=== PATIENT | male | born 1980 | race Caucasian/White ===

== ENCOUNTER 2018-06-20 14:55 | Emergency (ER) | payer OTHER ==
[~2018-06-20] VITALS: Ht 154.9 cm; Wt 108.9 kg
--- NOTE | 2018-06-20 16:06 | RAD ---
Single view pelvis two-view right hip, two-view right femur and three-view right ankle dated 06/20/2018. No comparison available. Clinical data indication: Pain after fall today. FINDINGS: AP view pelvis shows normal bony alignment. No displaced fracture. Pelvic ring is intact. No acute osseous or articular abnormality. Mild degenerative change of the bilateral hip joint. 2 views of right hip show normal bony alignment. No displaced fracture. No acute osseous or articular abnormality. 2 views of the right femur show normal bony alignment. No displaced fracture. The femoral shaft is intact. No acute osseous or articular abnormality. Mild tricompartmental degenerative change at the knee. 3 views right ankle show normal bony alignment. No displaced fracture. No acute osseous or articular abnormality. Talar dome is intact. IMPRESSION: No acute radiographic abnormality. Degenerative changes as described. Electronically signed by: Kashif Dietrich MD (06/20/2018 4:02 PM) [facility] [place]
--- NOTE | 2018-06-20 16:18 | PHYS DOC ---
Past History Past Medical History: Other Past Surgical History: Other Alcohol Use: Rarely Drug Use: None Adult General Chief Complaint Chief Complaint: MECHANICAL FALL HPI HPI Patient is a 37-year-old male who presents with complaint of right hip, thigh and ankle pain after falling at work. Patient states that he had stepped into a hole in the floor at work and tripped and fell. Patient states that he has had a total of 2 surgeries on his right hip in the past and he is worried that he may have done something to injure the hip. He rates his pain to be a 10 out of 10. Patient states that he takes Percocet 4 times a day and states that his last dose was at 12 PM. He states that that has not helped this pain. He denies any head injury or neck pain. Patient states that he is unable to bear weight on his hip due to the level of pain. Review of Systems Review of Systems Constitutional: Denies fever or chills [] Respiratory: Denies cough or shortness of breath [] Cardiovascular: No additional information not addressed in HPI [] Musculoskeletal: Complains of right hip, thigh and ankle pain[] Integument: Denies rash or skin lesions [] Current Medications Current Medications Current Medications Medications (Trade) Dose Ordered Sig/Anjana Start Time Stop Time Status Last Admin Dose Admin Fentanyl Citrate (Fentanyl 2ml Vial) 50 mcg 1X ONCE 06/20/18 16:15 06/20/18 16:16 UNV Allergies Allergies Allergies Coded Allergies Type Severity Reaction Last Updated Verified oseltamivir Allergy Unknown 06/20/18 Yes prochlorperazine Allergy Unknown 06/20/18 Yes Physical Exam Physical Exam Constitutional: Well developed, well nourished, no acute distress, non-toxic appearance. [] HENT: Normocephalic, atraumatic. [] Neck: Normal range of motion, no tenderness, supple, no stridor. [] Cardiovascular:Heart rate regular rhythm [] Lungs & Thorax: Bilateral breath sounds clear to auscultation [] Extremities: Examination of the right ankle demonstrates bimalleolar tenderness to palpation with minimal soft tissue swelling in the lateral malleolus. Unable to assess range of motion of hip due to patient's reported pain. No deformity is noted. [] Neurologic: Alert and oriented X 3, normal motor function, normal sensory function, no focal deficits noted. [] Current Patient Data Vital Signs Vital Signs Date Time Temp Pulse Resp B/P (MAP) Pulse Ox O2 Delivery O2 Flow Rate FiO2 06/20/18 16:00 83 16 122/74 (90) 98 Room Air 06/20/18 15:05 98.3 EKG EKG [] Radiology/Procedures Radiology/Procedures [] Impressions: X-ray imaging of the right hip, femur and ankle demonstrate no acute bony abnormalities. Course & Med Decision Making Course & Med Decision Making Pertinent Labs and Imaging studies reviewed. (See chart for details) [] Dragon Disclaimer Dragon Disclaimer This electronic medical record was generated, in whole or in part, using a voice recognition dictation system. Departure Departure: Impression: Primary Impression: Sprain of right hip Additional Impression: Right ankle sprain Disposition: HOME, SELF-CARE Condition: STABLE Referrals: PCP,UNKNOWN (PCP) Patient Instructions: Ankle Sprain, Form - Excuse from Work, School, or Physical Activity, Hip Injury Additional Instructions: Follow-up with your primary care provider or orthopedic surgeon in the next week. Problem Qualifiers Primary Impression: Sprain of right hip Encounter type: initial encounter Qualified Codes: S73.101A - Unspecified sprain of right hip, initial encounter Additional Impression: Right ankle sprain Encounter type: initial encounter Involved ligament of ankle: unspecified ligament Qualified Codes: S93.401A - Sprain of unspecified ligament of right ankle, initial encounter KAYLEEN MEYER Jr., DO Jun 20, 2018 16:18
[2018-06-20 16:34] VITALS: BP 6/54
== END 2018-06-20 16:40 | disposition home or self-care (01) ==
LOC: ER 14:55
DX: S93.401A Sprain of unspecified ligament of right ankle, initial encounter (principal); S73.101A Unspecified sprain of right hip, initial encounter; M79.651 Pain in right thigh; Z88.8 Allergy status to other drugs, medicaments and biological substances; W01.0XXA Fall on same level from slipping, tripping and stumbling without subsequent striking against object, initial encounter; Y93.89 Activity, other specified; Y92.89 Other specified places as the place of occurrence of the external cause; Y99.0 Civilian activity done for income or pay
CPT/HCPCS: 29515; 73502; 73552; 73610; 96372; 99284; J3010

== ENCOUNTER → 2018-06-26 | Outpatient (CLI) | payer OTHER ==
[2018-06-20 16:34] VITALS: BP 6/54
--- NOTE | 2018-06-26 09:20 | RAD ---
Right tibia and fibula, 2 views, 06/26/2018: HISTORY: Injury, pain No fracture or bony abnormality is detected. IMPRESSION: No significant bony abnormality is identified. Electronically signed by: Enrique Marquez MD (06/26/2018 9:16 AM) [facility]
== END | disposition home or self-care (01) ==
LOC: RAD 08:18
PROVIDERS: ATTEND Specialist
DX: M25.551 Pain in right hip (principal)
CPT/HCPCS: 73590